=== PATIENT | male | born 1935 | race Caucasian/White ===

== ENCOUNTER 2019-07-05 14:46 | Inpatient (IN) ==
[2019-07-05] MEDS ORDERED: 0.9 % Sodium Chloride 500 ML IVC ONE ×3 (14:59→16:30)
[2019-07-05 15:59] LABS: Hematocrit 41.4 % (37.5-50.1); Hemoglobin 13.5 g/dL (12.9-16.9); Mean Corpuscular HGB Conc 32.6 g/dL (31.6-35.5); Mean Platelet Volume 10.2 fL (9.4-12.4); Platelet Count 247 K/mcL (140-400); Red Cell Distribution Width 15.6 % (11.5-14.5); White Blood Count 14.7 K/mcL (4.3-11.1)
[2019-07-05 16:20] LABS: Potassium 4.6 mEq/L (3.5-5.1)
[2019-07-05] MEDS ORDERED: 0.9 % Sodium Chloride 1,000 ML IVC ONE (17:07)
[2019-07-05] MEDS ORDERED: cefTRIAXone 2,000 MG in Water for inj. (sterile) 20 ML IVP ONE (17:37)
[2019-07-05 18:02] LABS: Bilirubin,Urine Negative (Negative); Blood,Urine Small (Negative); Clarity,Urine Cloudy (Clear); Color,Urine Yellow (Yellow); Glucose,Urine (UA) 100 mg/dL (Normal); Ketones,Urine Negative (Negative); Leukocyte Esterase,Urine Negative (Negative); Nitrite,Urine Negative (Negative); Protein,Urine >=300 mg/dL (Neg-Trace); Specific Gravity,Urine 1.026 (1.010-1.025); Urobilinogen,Urine Normal (Normal)
[2019-07-05 18:05] LABS: Bacteria,Urine None Seen per hpf (None-Few); RBC,Urine 0-3 per hpf (0-3); Squamous Epithelial Cell,Urine Many per lpf (None-Few); WBC,Urine 0-3 per hpf (0-3)
[2019-07-06] MEDS ORDERED: Naloxone 0.4 MG/ML INJ IVP PRN (02:08)
[2019-07-06] MEDS ORDERED: 0.9 % Sodium Chloride 1,000 ML IVC ONE (02:10)
[2019-07-06] MEDS ORDERED: Dextrose Gel 15 GM/37.5 ML TUBE PO PRN ×2 (02:10)
[2019-07-06] MEDS ORDERED: *HR* Dextrose 50 % in Water (Syg) 50 ML SYRINGE IVP PRN (02:10)
[2019-07-06] MEDS ORDERED: D5% in Water 1,000 ML IVC PRN (02:10)
[2019-07-06 04:17] LABS: Hematocrit 42.8 % (37.5-50.1); Hemoglobin 13.4 g/dL (12.9-16.9); Mean Corpuscular HGB Conc 31.3 g/dL (31.6-35.5); Mean Corpuscular Hemoglobin 29.8 pg (28.0-33.3); Mean Corpuscular Volume 95.3 fL (83.0-100.0); Mean Platelet Volume 10.1 fL (9.4-12.4); Platelet Count 197 K/mcL (140-400); Red Blood Count 4.49 M/mcL (4.19-5.50); Red Cell Distribution Width 15.5 % (11.5-14.5); White Blood Count 13.7 K/mcL (4.3-11.1)
[2019-07-06 04:39] LABS: BUN/Creatinine Ratio 28 (6-26); Blood Urea Nitrogen 25 mg/dL (8-23); Calcium 9.1 mg/dL (8.6-10.3); Carbon Dioxide 23 mEq/L (23-29); Chloride 111 mEq/L (98-107); Glucose 163 mg/dL (70-105); Osmolality,Calculated 308 (280-300); Potassium 4.1 mEq/L (3.5-5.1); Sodium 145 mEq/L (136-145); eGFR For African Americans > 60 (> 60); eGFR For Non-African Americans > 60 (> 60)
[2019-07-06] MEDS: Insulin LISPRO 300 UNITS/3 ML VIAL SQ SCH ×4 (08:33→20:13)
[2019-07-06 08:56] LABS: Creatine Kinase 682 Units/L (30-223)
[2019-07-06 09:45] LABS: Estimated Average Glucose 157 mg/dl
[2019-07-06] MEDS: cefTRIAXone 1,000 MG in Water for inj. (sterile) 10 ML IVP SCH (12:03)
[2019-07-06] MEDS: Aspirin 81 MG TAB.CHEW PO SCH (12:04)
[2019-07-06] MEDS: *HR* Heparin 5,000 UNIT/ML VIAL SQ SCH (17:11)
[2019-07-06] MEDS ORDERED: *HR* LORazepam 2 MG/ML VIAL IVP ONE (19:40)
[2019-07-07] MEDS: *HR* Heparin 5,000 UNIT/ML VIAL SQ SCH (05:08)
[2019-07-07] MEDS: Insulin LISPRO 300 UNITS/3 ML VIAL SQ SCH ×4 (08:18→22:53)
[2019-07-07] MEDS: Aspirin 81 MG TAB.CHEW PO SCH (08:18)
[2019-07-07] MEDS ORDERED: *HR* Labetalol 20 MG/4 ML SYRINGE IVP PRN (08:57)
[2019-07-07] MEDS: cefTRIAXone 1,000 MG in Water for inj. (sterile) 10 ML IVP SCH (11:55)
[2019-07-07] MEDS: Finasteride 5 MG TABLET PO SCH (12:10)
[2019-07-07] MEDS: Carbidopa/Levodopa 25/100 TABLET PO SCH ×3 (12:10→16:44)
[2019-07-07 14:23] LABS: Basophils # 0.1 K/mcL (0.0-0.2); Basophils % 0.7 %; Eosinophils # 0.4 K/mcL (0.0-0.6); Eosinophils % 4.4 %; Hematocrit 38.7 % (37.5-50.1); Hemoglobin 12.3 g/dL (12.9-16.9); Lymphocytes # 1.1 K/mcL (0.6-4.6); Lymphocytes % 11.8 %; Mean Corpuscular HGB Conc 31.8 g/dL (31.6-35.5); Mean Corpuscular Hemoglobin 29.9 pg (28.0-33.3); Mean Corpuscular Volume 94.2 fL (83.0-100.0); Mean Platelet Volume 10.1 fL (9.4-12.4); Monocytes # 1.1 K/mcL (0.0-1.3); Monocytes % 11.1 %; Neutrophils # 6.7 K/mcL (1.6-8.9); Platelet Count 197 K/mcL (140-400); Red Blood Count 4.11 M/mcL (4.19-5.50); Red Cell Distribution Width 15.5 % (11.5-14.5); White Blood Count 9.6 K/mcL (4.3-11.1)
[2019-07-07 14:36] LABS: BUN/Creatinine Ratio 21 (6-26); Blood Urea Nitrogen 22 mg/dL (8-23); Calcium 8.3 mg/dL (8.6-10.3); Carbon Dioxide 23 mEq/L (23-29); Chloride 107 mEq/L (98-107); Creatine Kinase 207 Units/L (30-223); Glucose 223 mg/dL (70-105); Osmolality,Calculated 294 (280-300); Sodium 137 mEq/L (136-145); eGFR For African Americans > 60 (> 60); eGFR For Non-African Americans > 60 (> 60)
[2019-07-07 14:37] LABS: Chol/HDL Ratio 5.1 (0-4.9)
[2019-07-07] MEDS: [UNRECOGNIZED DRUG - OTHER] PO SCH (16:44)
[2019-07-08] MEDS: Finasteride 5 MG TABLET PO SCH (08:26)
[2019-07-08] MEDS: Insulin LISPRO 300 UNITS/3 ML VIAL SQ SCH ×4 (08:26→20:35)
[2019-07-08] MEDS: Carbidopa/Levodopa 25/100 TABLET PO SCH ×3 (08:26→17:24)
[2019-07-08] MEDS: Aspirin 81 MG TAB.CHEW PO SCH (08:26)
[2019-07-08] MEDS: [UNRECOGNIZED DRUG - OTHER] PO SCH (08:27)
[2019-07-08 16:31] LABS: BUN/Creatinine Ratio 23 (6-26); Blood Urea Nitrogen 26 mg/dL (8-23); Calcium 8.5 mg/dL (8.6-10.3); Carbon Dioxide 22 mEq/L (23-29); Chloride 108 mEq/L (98-107); Glucose 237 mg/dL (70-105); Osmolality,Calculated 300 (280-300); Potassium 4.2 mEq/L (3.5-5.1); Sodium 139 mEq/L (136-145); eGFR For African Americans > 60 (> 60); eGFR For Non-African Americans > 60 (> 60)
[2019-07-08] MEDS: *HR* Metformin 500 MG TABLET PO SCH (17:24)
[2019-07-09] MEDS: Finasteride 5 MG TABLET PO SCH (07:44)
[2019-07-09] MEDS: Carbidopa/Levodopa 25/100 TABLET PO SCH ×3 (07:44→16:09)
[2019-07-09] MEDS: Aspirin 81 MG TAB.CHEW PO SCH (07:44)
[2019-07-09] MEDS: *HR* Metformin 500 MG TABLET PO SCH ×2 (07:44→16:09)
[2019-07-09] MEDS: [UNRECOGNIZED DRUG - OTHER] PO SCH (07:45)
[2019-07-09] MEDS: Insulin LISPRO 300 UNITS/3 ML VIAL SQ SCH ×4 (07:46→20:26)
[2019-07-09] MEDS: amLODIPine 5 MG TABLET PO SCH (11:53)
[2019-07-09] MEDS: Acetaminophen 325 MG TABLET PO PRN ×2 (16:09→20:23)
[2019-07-09] MEDS ORDERED: Ibuprofen 400 MG TABLET PO ONE (21:56)
[2019-07-10] MEDS: amLODIPine 5 MG TABLET PO SCH (07:59)
[2019-07-10] MEDS: Aspirin 81 MG TAB.CHEW PO SCH (07:59)
[2019-07-10] MEDS: Finasteride 5 MG TABLET PO SCH (07:59)
[2019-07-10] MEDS: Carbidopa/Levodopa 25/100 TABLET PO SCH ×3 (07:59→17:24)
[2019-07-10] MEDS: *HR* Metformin 500 MG TABLET PO SCH ×2 (07:59→17:24)
[2019-07-10] MEDS: Insulin LISPRO 300 UNITS/3 ML VIAL SQ SCH ×4 (08:00→20:56)
[2019-07-10] MEDS: [UNRECOGNIZED DRUG - OTHER] PO SCH (08:00)
[2019-07-10 14:19] LABS: VBG HCO3 21 mEq/L (21-27); VBG PCO2 39 mmHg (41-51); VBG PH 7.34 pH Units (7.32-7.42); VBG PO2 70 mmHg (25-50)
[2019-07-10 14:20] LABS: Basophils # 0.1 K/mcL (0.0-0.2); Basophils % 0.3 %; Eosinophils # 0.1 K/mcL (0.0-0.6); Eosinophils % 0.8 %; Hematocrit 34.7 % (37.5-50.1); Immature Granulocytes % 3.1 % (0-4); Lymphocytes # 1.1 K/mcL (0.6-4.6); Lymphocytes % 6.3 %; Mean Corpuscular HGB Conc 30.8 g/dL (31.6-35.5); Mean Corpuscular Hemoglobin 29.7 pg (28.0-33.3); Mean Corpuscular Volume 96.4 fL (83.0-100.0); Mean Platelet Volume 10.5 fL (9.4-12.4); Monocytes # 1.6 K/mcL (0.0-1.3); Monocytes % 9.3 %; Neutrophils # 13.7 K/mcL (1.6-8.9); Platelet Count 213 K/mcL (140-400); Red Cell Distribution Width 15.8 % (11.5-14.5); Segmented Neutrophils % 80.2 %
[2019-07-10 14:30] LABS: Hemoglobin 10.7 g/dL (12.9-16.9); White Blood Count 17.1 K/mcL (4.3-11.1)
[2019-07-10 14:51] LABS: Calcium 9.1 mg/dL (8.6-10.3); Potassium 4.3 mEq/L (3.5-5.1)
[2019-07-10] MEDS ORDERED: Bisacodyl 10 MG RECTAL SUPPOSITORY RC ONE (14:59)
[2019-07-10 16:18] LABS: Bilirubin,Urine Small (Negative); Blood,Urine Large (Negative); Clarity,Urine Cloudy (Clear); Color,Urine Dark Yellow (Yellow); Glucose,Urine (UA) 100 mg/dL (Normal); Ketones,Urine Negative (Negative); Leukocyte Esterase,Urine Negative (Negative); Nitrite,Urine Negative (Negative); Protein,Urine >=300 mg/dL (Neg-Trace); Specific Gravity,Urine 1.028 (1.010-1.025); Urobilinogen,Urine Normal (Normal)
[2019-07-10 16:20] LABS: Bacteria,Urine None Seen per hpf (None-Few); RBC,Urine TNTC per hpf (0-3); Squamous Epithelial Cell,Urine Many per lpf (None-Few)
[2019-07-10 16:37] LABS: Hyaline Casts,Urine None Seen per lpf (None-Few)
[2019-07-10 16:38] LABS: Sperm,Urine Present
[2019-07-10] MEDS: Piperacillin/Tazobactam 3.375 GM in 0.9 % Sodium Chloride Mini Bag 100 ML IVPB SCH ×2 (17:56→23:14)
[2019-07-10] MEDS: Ringers Solution, Lactated 1,000 ML IVC SCH (21:11)
[2019-07-11 07:00] LABS: Bilirubin,Urine Negative (Negative); Blood,Urine Large (Negative); Clarity,Urine Clear (Clear); Color,Urine Yellow (Yellow); Glucose,Urine (UA) Normal (Normal); Ketones,Urine Negative (Negative); Leukocyte Esterase,Urine Trace (Negative); Nitrite,Urine Negative (Negative); PH,Urine 5.5 pH Units (5.0-8.0); Protein,Urine 100 mg/dL (Neg-Trace); Specific Gravity,Urine 1.022 (1.010-1.025); Urobilinogen,Urine Normal (Normal)
[2019-07-11 07:01] LABS: Bacteria,Urine None Seen per hpf (None-Few); Hyaline Casts,Urine None Seen per lpf (None-Few); RBC,Urine 50-100 per hpf (0-3); Squamous Epithelial Cell,Urine Many per lpf (None-Few); WBC,Urine 15-30 per hpf (0-3)
[2019-07-11 09:11] LABS: Hematocrit 30.6 % (37.5-50.1); Hemoglobin 10.1 g/dL (12.9-16.9); Mean Corpuscular Hemoglobin 30.1 pg (28.0-33.3); Mean Corpuscular Volume 91.1 fL (83.0-100.0); Mean Platelet Volume 10.4 fL (9.4-12.4); Platelet Count 202 K/mcL (140-400); Red Blood Count 3.36 M/mcL (4.19-5.50); Red Cell Distribution Width 15.6 % (11.5-14.5); White Blood Count 12.2 K/mcL (4.3-11.1)
[2019-07-11 09:29] LABS: BUN/Creatinine Ratio 30 (6-26); Blood Urea Nitrogen 29 mg/dL (8-23); Calcium 8.3 mg/dL (8.6-10.3); Carbon Dioxide 24 mEq/L (23-29); Chloride 110 mEq/L (98-107); Glucose 175 mg/dL (70-105); Osmolality,Calculated 300 (280-300); Potassium 4.1 mEq/L (3.5-5.1); Sodium 140 mEq/L (136-145); eGFR For African Americans > 60 (> 60); eGFR For Non-African Americans > 60 (> 60)
[2019-07-11] MEDS: Insulin LISPRO 300 UNITS/3 ML VIAL SQ SCH ×4 (09:29→21:40)
[2019-07-11] MEDS: *HR* Metformin 500 MG TABLET PO SCH ×2 (09:49→17:50)
[2019-07-11] MEDS: Carbidopa/Levodopa 25/100 TABLET PO SCH ×3 (09:49→17:50)
[2019-07-11] MEDS: Finasteride 5 MG TABLET PO SCH (09:49)
[2019-07-11] MEDS: Aspirin 81 MG TAB.CHEW PO SCH (09:49)
[2019-07-11] MEDS: Piperacillin/Tazobactam 3.375 GM in 0.9 % Sodium Chloride Mini Bag 100 ML IVPB SCH (09:50)
[2019-07-11] MEDS: [UNRECOGNIZED DRUG - OTHER] PO SCH (09:50)
[2019-07-11] MEDS: Bisacodyl 10 MG RECTAL SUPPOSITORY RC SCH (09:50)
[2019-07-11] MEDS: Acetaminophen 325 MG TABLET PO PRN (12:40)
[2019-07-11] MEDS: Ringers Solution, Lactated 1,000 ML IVC SCH (15:27)
[2019-07-12 06:54] LABS: Hematocrit 30.6 % (37.5-50.1); Mean Corpuscular HGB Conc 32.7 g/dL (31.6-35.5); Mean Corpuscular Hemoglobin 30.1 pg (28.0-33.3); Mean Corpuscular Volume 92.2 fL (83.0-100.0); Mean Platelet Volume 10.3 fL (9.4-12.4); Platelet Count 224 K/mcL (140-400); Red Blood Count 3.32 M/mcL (4.19-5.50); Red Cell Distribution Width 15.6 % (11.5-14.5); White Blood Count 10.1 K/mcL (4.3-11.1)
[2019-07-12 07:20] LABS: BUN/Creatinine Ratio 30 (6-26); Blood Urea Nitrogen 27 mg/dL (8-23); Calcium 8.3 mg/dL (8.6-10.3); Carbon Dioxide 23 mEq/L (23-29); Chloride 108 mEq/L (98-107); Glucose 161 mg/dL (70-105); Osmolality,Calculated 301 (280-300); Potassium 4.2 mEq/L (3.5-5.1); Sodium 141 mEq/L (136-145); eGFR For African Americans > 60 (> 60); eGFR For Non-African Americans > 60 (> 60)
[2019-07-12] MEDS: Insulin LISPRO 300 UNITS/3 ML VIAL SQ SCH (08:05)
[2019-07-12] MEDS: Carbidopa/Levodopa 25/100 TABLET PO SCH (08:06)
[2019-07-12] MEDS: *HR* Metformin 500 MG TABLET PO SCH (08:06)
[2019-07-12] MEDS: Aspirin 81 MG TAB.CHEW PO SCH (08:06)
[2019-07-12] MEDS: Finasteride 5 MG TABLET PO SCH (08:06)
[2019-07-12] MEDS: Bisacodyl 10 MG RECTAL SUPPOSITORY RC SCH (08:06)
[2019-07-12] MEDS: [UNRECOGNIZED DRUG - OTHER] PO SCH (08:07)
[2019-07-12] MEDS ORDERED: levoFLOXacin 500 MG TABLET PO SCH (09:00)
[2019-07-12 12:24] VITALS: BP 150/76
== END 2019-07-12 15:16 | DRG 64 ==
LOC: EMEROOARM 14:46 → 3BNU 14:46 → SUATTDRO 07-06 11:52
PROVIDERS: ADMIT Internal Medicine; ATTEND Family Medicine

== ENCOUNTER 2019-09-11 12:12 | Inpatient (IN) ==
[2019-09-11] MEDS ORDERED: Isovue-370 500 ML BOTTLE IVP ONE (13:05)
[2019-09-11] MEDS ORDERED: Piperacillin/Tazobactam 3.375 GM in 0.9 % Sodium Chloride Mini Bag 100 ML IVPB ONE (13:06)
[2019-09-11] MEDS ORDERED: 0.9 % Sodium Chloride 1,000 ML IVC ONE (13:19)
[2019-09-11 14:01] LABS: INR 1.1; Prothrombin Time 12.8 Seconds (9.4-12.1)
[2019-09-11 14:02] LABS: Hematocrit 38.2 % (37.5-50.1); Hemoglobin 11.4 g/dL (12.9-16.9); Lymphocytes # 1.4 K/mcL (0.6-4.6); Mean Corpuscular HGB Conc 29.8 g/dL (31.6-35.5); Mean Corpuscular Hemoglobin 26.8 pg (28.0-33.3); Mean Corpuscular Volume 89.9 fL (83.0-100.0); Mean Platelet Volume 10.5 fL (9.4-12.4); Platelet Count 303 K/mcL (140-400); Red Blood Count 4.25 M/mcL (4.19-5.50); Red Cell Distribution Width 15.7 % (11.5-14.5); White Blood Count 13.7 K/mcL (4.3-11.1)
[2019-09-11 14:14] LABS: Albumin/Globulin Ratio 0.8 (1.1-2.2); Bilirubin,Total 0.9 mg/dL (0.3-1.0); Calcium 9.4 mg/dL (8.6-10.3); Potassium 3.8 mEq/L (3.5-5.1); Troponin I 0.03 ng/mL (< 0.04)
[2019-09-11 14:51] LABS: Monocytes # 0.8 K/mcL (0.0-1.3); Neutrophils # 11.5 K/mcL (1.6-8.9); Platelet Estimate Normal (Normal)
[2019-09-11] MEDS ORDERED: Morphine Sulfate 2 MG/ML SYRINGE IVP ONE (15:27)
[2019-09-11 15:34] LABS: Bilirubin,Urine Small (Negative); Blood,Urine Large (Negative); Clarity,Urine Turbid (Clear); Color,Urine Dark Yellow (Yellow); Glucose,Urine (UA) 100 mg/dL (Normal); Ketones,Urine Negative (Negative); Leukocyte Esterase,Urine Moderate (Negative); Nitrite,Urine Negative (Negative); Protein,Urine >=300 mg/dL (Neg-Trace); Specific Gravity,Urine > 1.030 (1.010-1.025); Squamous Epithelial Cell,Urine Moderate per lpf (None-Few); Urobilinogen,Urine Normal (Normal); WBC,Urine TNTC per hpf (0-3)
[2019-09-11 15:44] LABS: Amorphous Sediment,Urine Few per hpf (Few); Bacteria,Urine Moderate per hpf (None-Few); Hyaline Casts,Urine Few per lpf (None-Few)
[2019-09-11] MEDS ORDERED: Ondansetron 4 MG/2 ML VIAL IVP PRN (15:59)
[2019-09-11] MEDS ORDERED: Naloxone 0.4 MG/ML INJ IVP PRN (15:59)
[2019-09-11] MEDS ORDERED: Bisacodyl 10 MG RECTAL SUPPOSITORY RC PRN (16:16)
[2019-09-11] MEDS ORDERED: D5% in Water 1,000 ML IVC PRN (16:31)
[2019-09-11] MEDS ORDERED: Dextrose Gel 15 GM/37.5 ML TUBE PO PRN ×2 (16:31)
[2019-09-11] MEDS ORDERED: *HR* Dextrose 50 % in Water (Syg) 50 ML SYRINGE IVP PRN (16:31)
[2019-09-11] MEDS: Insulin LISPRO 300 UNITS/3 ML VIAL SQ SCH (20:45)
[2019-09-11] MEDS: 0.9 % Sodium Chloride 1,000 ML IVC SCH (20:45)
[2019-09-11] MEDS: *HR* Heparin 5,000 UNIT/ML VIAL SQ SCH (20:46)
[2019-09-11] MEDS: Sennosides/Docusate Sodium TABLET PO SCH (20:48)
[2019-09-12] MEDS: *HR* Heparin 5,000 UNIT/ML VIAL SQ SCH ×2 (05:28→16:00)
[2019-09-12 07:11] LABS: Basophils # 0.1 K/mcL (0.0-0.2); Basophils % 0.6 %; Eosinophils # 0.1 K/mcL (0.0-0.6); Eosinophils % 0.7 %; Hematocrit 31.4 % (37.5-50.1); Hemoglobin 9.7 g/dL (12.9-16.9); Immature Granulocytes % 2.6 % (0-4); Lymphocytes # 0.7 K/mcL (0.6-4.6); Lymphocytes % 5.8 %; Mean Corpuscular HGB Conc 30.9 g/dL (31.6-35.5); Mean Corpuscular Volume 87.5 fL (83.0-100.0); Mean Platelet Volume 10.4 fL (9.4-12.4); Monocytes # 0.9 K/mcL (0.0-1.3); Monocytes % 7.9 %; Neutrophils # 9.9 K/mcL (1.6-8.9); Platelet Count 251 K/mcL (140-400); Red Blood Count 3.59 M/mcL (4.19-5.50); Red Cell Distribution Width 15.8 % (11.5-14.5); Segmented Neutrophils % 82.4 %; White Blood Count 11.9 K/mcL (4.3-11.1)
[2019-09-12 07:24] LABS: BUN/Creatinine Ratio 25 (6-26); Blood Urea Nitrogen 29 mg/dL (8-23); Calcium 8.3 mg/dL (8.6-10.3); Carbon Dioxide 22 mEq/L (23-29); Chloride 113 mEq/L (98-107); Glucose 228 mg/dL (70-105); Magnesium 1.9 mg/dL (1.6-2.6); Osmolality,Calculated 317 (280-300); Potassium 3.5 mEq/L (3.5-5.1); Sodium 147 mEq/L (136-145); eGFR For African Americans > 60 (> 60); eGFR For Non-African Americans 60 (> 60)
[2019-09-12] MEDS: Insulin LISPRO 300 UNITS/3 ML VIAL SQ SCH ×4 (09:32→21:20)
[2019-09-12] MEDS: Sennosides/Docusate Sodium TABLET PO SCH ×2 (09:32→21:20)
[2019-09-12] MEDS ORDERED: E-Z-PAQUE (BARIUM SULF) SUSP 1 BOTTLE PO ONE (15:36)
[2019-09-12] MEDS ORDERED: E-Z-HD (BARIUM SULF) SUSPENSION PO ONE (15:36)
[2019-09-12] MEDS: Acetaminophen 325 MG TABLET PO PRN (15:57)
[2019-09-12] MEDS ORDERED: 0.9 % Sodium Chloride 1,000 ML ONE (17:50)
[2019-09-12] MEDS: 0.9 % Sodium Chloride 1,000 ML IVC SCH (17:53)
[2019-09-12 18:18] LABS: Acinetobacter baumannii by PCR Not Detected (Not Detect); Enterobacter cloacae Cmplx PCR Not Detected (Not Detect); Enterococcus by PCR Not Detected (Not Detect); Escherichia coli by PCR Not Detected (Not Detect); Klebsiella oxytoca by PCR Not Detected (Not Detect); Klebsiella pneumoniae by PCR Not Detected (Not Detect); Staphylococcus aureus by PCR Not Detected (Not Detect); Staphylococcus by PCR Not Detected (Not Detect); Streptococcus agalactiae(B)PCR Not Detected (Not Detect); Streptococcus by PCR Not Detected (Not Detect); Streptococcus pneumoniae PCR Not Detected (Not Detect); Streptococcus pyogenes (A) PCR Not Detected (Not Detect); blaKPC Carbapenem-Resist Gene Not Detected (Not Detect); mecA Methicillin-Resist Gene Not Detected (Not Detect); vanA/B Vancomycin-Resist Genes Not Detected (Not Detect)
[2019-09-12 18:19] LABS: Candida albicans by PCR Not Detected (Not Detect); Candida glabrata by PCR Not Detected (Not Detect); Candida krusei by PCR Not Detected (Not Detect); Candida parapsilosis by PCR Not Detected (Not Detect); Candida tropicalis by PCR Not Detected (Not Detect); Proteus by PCR DETECTED (Not Detect); Pseudomonas aeruginosa by PCR Not Detected (Not Detect); Serratia marcescens by PCR Not Detected (Not Detect)
[2019-09-12] MEDS: Piperacillin/Tazobactam 3.375 GM in 0.9 % Sodium Chloride Mini Bag 100 ML IVPB SCH (23:12)
[2019-09-13 02:42] LABS: Basophils # 0.1 K/mcL (0.0-0.2); Basophils % 0.5 %; Eosinophils # 0.1 K/mcL (0.0-0.6); Eosinophils % 0.8 %; Hematocrit 33.7 % (37.5-50.1); Hemoglobin 10.1 g/dL (12.9-16.9); Immature Granulocytes % 3.4 % (0-4); Lymphocytes # 1.1 K/mcL (0.6-4.6); Lymphocytes % 7.9 %; Mean Corpuscular Hemoglobin 26.9 pg (28.0-33.3); Mean Corpuscular Volume 89.6 fL (83.0-100.0); Mean Platelet Volume 9.8 fL (9.4-12.4); Monocytes # 1.1 K/mcL (0.0-1.3); Monocytes % 8.1 %; Platelet Count 269 K/mcL (140-400); Red Blood Count 3.76 M/mcL (4.19-5.50); Red Cell Distribution Width 15.9 % (11.5-14.5); Segmented Neutrophils % 79.3 %; White Blood Count 13.9 K/mcL (4.3-11.1)
[2019-09-13 03:01] LABS: BUN/Creatinine Ratio 17 (6-26); Blood Urea Nitrogen 19 mg/dL (8-23); Calcium 8.5 mg/dL (8.6-10.3); Carbon Dioxide 22 mEq/L (23-29); Chloride 114 mEq/L (98-107); Glucose 199 mg/dL (70-105); Osmolality,Calculated 318 (280-300); Potassium 3.3 mEq/L (3.5-5.1); Sodium 150 mEq/L (136-145); eGFR For African Americans > 60 (> 60); eGFR For Non-African Americans > 60 (> 60)
[2019-09-13] MEDS: *HR* Heparin 5,000 UNIT/ML VIAL SQ SCH ×2 (05:31→23:22)
[2019-09-13] MEDS: Piperacillin/Tazobactam 3.375 GM in 0.9 % Sodium Chloride Mini Bag 100 ML IVPB SCH ×3 (09:52→23:25)
[2019-09-13] MEDS: Insulin LISPRO 300 UNITS/3 ML VIAL SQ SCH ×5 (09:52→20:52)
[2019-09-13] MEDS: Sennosides/Docusate Sodium TABLET PO SCH ×2 (09:53→20:51)
[2019-09-13] MEDS: Mirtazapine 15 MG TABLET PO SCH (20:51)
[2019-09-13] MEDS: Carbidopa/Levodopa 25/100 TABLET PO SCH (20:52)
[2019-09-13] MEDS: Insulin DETEMIR 100 UNIT/ML X5UNITS SQ SCH (20:53)
[2019-09-14] MEDS: *HR* Heparin 5,000 UNIT/ML VIAL SQ SCH ×2 (05:23→18:11)
[2019-09-14 06:06] LABS: Basophils # 0.1 K/mcL (0.0-0.2); Basophils % 0.4 %; Eosinophils # 0.2 K/mcL (0.0-0.6); Eosinophils % 1.4 %; Hematocrit 29.5 % (37.5-50.1); Hemoglobin 9.3 g/dL (12.9-16.9); Immature Granulocytes % 2.8 % (0-4); Lymphocytes # 1.2 K/mcL (0.6-4.6); Lymphocytes % 7.2 %; Mean Corpuscular HGB Conc 31.5 g/dL (31.6-35.5); Mean Corpuscular Hemoglobin 27.1 pg (28.0-33.3); Mean Platelet Volume 10.1 fL (9.4-12.4); Monocytes # 1.1 K/mcL (0.0-1.3); Monocytes % 6.9 %; Neutrophils # 13.1 K/mcL (1.6-8.9); Nucleated Red Blood Cells 0.1 /100 WBC (0); Platelet Count 245 K/mcL (140-400); Red Blood Count 3.43 M/mcL (4.19-5.50); Red Cell Distribution Width 15.8 % (11.5-14.5); Segmented Neutrophils % 81.3 %; White Blood Count 16.2 K/mcL (4.3-11.1)
[2019-09-14 06:32] LABS: BUN/Creatinine Ratio 17 (6-26); Blood Urea Nitrogen 18 mg/dL (8-23); Calcium 8.2 mg/dL (8.6-10.3); Carbon Dioxide 23 mEq/L (23-29); Chloride 115 mEq/L (98-107); Glucose 154 mg/dL (70-105); Osmolality,Calculated 315 (280-300); Sodium 150 mEq/L (136-145); eGFR For African Americans > 60 (> 60); eGFR For Non-African Americans > 60 (> 60)
[2019-09-14] MEDS: Insulin LISPRO 300 UNITS/3 ML VIAL SQ SCH ×7 (09:15→22:11)
[2019-09-14] MEDS: Piperacillin/Tazobactam 3.375 GM in 0.9 % Sodium Chloride Mini Bag 100 ML IVPB SCH ×3 (10:27→23:58)
[2019-09-14] MEDS: Acetaminophen 325 MG TABLET PO PRN (10:27)
[2019-09-14] MEDS: Carbidopa/Levodopa 25/100 TABLET PO SCH ×3 (10:29→20:17)
[2019-09-14] MEDS: amLODIPine 5 MG TABLET PO SCH (10:29)
[2019-09-14] MEDS: Aspirin Enteric Coated 81 MG Tablet PO SCH (10:29)
[2019-09-14] MEDS: Sennosides/Docusate Sodium TABLET PO SCH ×2 (10:29→20:13)
[2019-09-14] MEDS: Mirtazapine 15 MG TABLET PO SCH (20:13)
[2019-09-14] MEDS: Insulin DETEMIR 100 UNIT/ML X5UNITS SQ SCH (22:11)
[2019-09-15 02:03] LABS: Basophils # 0.1 K/mcL (0.0-0.2); Basophils % 0.5 %; Eosinophils # 0.3 K/mcL (0.0-0.6); Eosinophils % 2.1 %; Hematocrit 29.6 % (37.5-50.1); Immature Granulocytes % 2.7 % (0-4); Lymphocytes # 1.2 K/mcL (0.6-4.6); Lymphocytes % 7.3 %; Mean Corpuscular HGB Conc 30.4 g/dL (31.6-35.5); Mean Corpuscular Hemoglobin 27.4 pg (28.0-33.3); Mean Corpuscular Volume 90.2 fL (83.0-100.0); Mean Platelet Volume 10.1 fL (9.4-12.4); Monocytes % 6.1 %; Neutrophils # 13.2 K/mcL (1.6-8.9); Platelet Count 237 K/mcL (140-400); Red Blood Count 3.28 M/mcL (4.19-5.50); Red Cell Distribution Width 15.7 % (11.5-14.5); Segmented Neutrophils % 81.3 %; White Blood Count 16.2 K/mcL (4.3-11.1)
[2019-09-15 02:26] LABS: BUN/Creatinine Ratio 18 (6-26); Blood Urea Nitrogen 18 mg/dL (8-23); Calcium 8.1 mg/dL (8.6-10.3); Carbon Dioxide 23 mEq/L (23-29); Chloride 116 mEq/L (98-107); Glucose 122 mg/dL (70-105); Osmolality,Calculated 307 (280-300); Potassium 3.2 mEq/L (3.5-5.1); Sodium 147 mEq/L (136-145); eGFR For African Americans > 60 (> 60); eGFR For Non-African Americans > 60 (> 60)
[2019-09-15] MEDS: *HR* Heparin 5,000 UNIT/ML VIAL SQ SCH ×2 (06:43→18:03)
[2019-09-15] MEDS: amLODIPine 5 MG TABLET PO SCH (08:59)
[2019-09-15] MEDS: Sennosides/Docusate Sodium TABLET PO SCH ×2 (08:59→23:23)
[2019-09-15] MEDS: Aspirin Enteric Coated 81 MG Tablet PO SCH (08:59)
[2019-09-15] MEDS: Piperacillin/Tazobactam 3.375 GM in 0.9 % Sodium Chloride Mini Bag 100 ML IVPB SCH ×2 (09:01→16:26)
[2019-09-15] MEDS: Insulin LISPRO 300 UNITS/3 ML VIAL SQ SCH ×7 (09:02→23:38)
[2019-09-15] MEDS: Carbidopa/Levodopa 25/100 TABLET PO SCH ×3 (09:29→23:37)
[2019-09-15] MEDS: Acetaminophen 325 MG TABLET PO PRN ×2 (15:09→23:23)
[2019-09-15] MEDS: Insulin DETEMIR 100 UNIT/ML X5UNITS SQ SCH (23:24)
[2019-09-15] MEDS: Mirtazapine 15 MG TABLET PO SCH (23:37)
[2019-09-16] MEDS: Piperacillin/Tazobactam 3.375 GM in 0.9 % Sodium Chloride Mini Bag 100 ML IVPB SCH ×3 (00:43→17:24)
[2019-09-16] MEDS: *HR* Heparin 5,000 UNIT/ML VIAL SQ SCH ×2 (06:29→17:24)
[2019-09-16] MEDS: Aspirin Enteric Coated 81 MG Tablet PO SCH (08:13)
[2019-09-16] MEDS: amLODIPine 5 MG TABLET PO SCH (08:13)
[2019-09-16] MEDS: Carbidopa/Levodopa 25/100 TABLET PO SCH ×3 (08:14→19:44)
[2019-09-16] MEDS: Insulin LISPRO 300 UNITS/3 ML VIAL SQ SCH ×6 (08:15→17:23)
[2019-09-16] MEDS: Sennosides/Docusate Sodium TABLET PO SCH (08:16)
[2019-09-16 08:31] LABS: BUN/Creatinine Ratio 17 (6-26); Blood Urea Nitrogen 18 mg/dL (8-23); Calcium 8.1 mg/dL (8.6-10.3); Carbon Dioxide 27 mEq/L (23-29); Chloride 113 mEq/L (98-107); Glucose 80 mg/dL (70-105); Osmolality,Calculated 307 (280-300); Sodium 148 mEq/L (136-145); eGFR For African Americans > 60 (> 60); eGFR For Non-African Americans > 60 (> 60)
[2019-09-16 08:51] LABS: Basophils # 0.1 K/mcL (0.0-0.2); Basophils % 0.6 %; Eosinophils # 0.5 K/mcL (0.0-0.6); Eosinophils % 3.1 %; Hematocrit 28.7 % (37.5-50.1); Immature Granulocytes % 2.6 % (0-4); Lymphocytes # 1.4 K/mcL (0.6-4.6); Lymphocytes % 9.5 %; Mean Corpuscular HGB Conc 31.4 g/dL (31.6-35.5); Mean Corpuscular Hemoglobin 27.2 pg (28.0-33.3); Mean Corpuscular Volume 86.7 fL (83.0-100.0); Mean Platelet Volume 10.2 fL (9.4-12.4); Monocytes # 0.9 K/mcL (0.0-1.3); Monocytes % 5.9 %; Neutrophils # 11.6 K/mcL (1.6-8.9); Platelet Count 264 K/mcL (140-400); Red Blood Count 3.31 M/mcL (4.19-5.50); Red Cell Distribution Width 15.9 % (11.5-14.5); Segmented Neutrophils % 78.3 %; White Blood Count 14.8 K/mcL (4.3-11.1)
[2019-09-17] MEDS: Insulin LISPRO 300 UNITS/3 ML VIAL SQ SCH ×7 (00:44→20:55)
[2019-09-17] MEDS: Piperacillin/Tazobactam 3.375 GM in 0.9 % Sodium Chloride Mini Bag 100 ML IVPB SCH ×3 (01:50→18:09)
[2019-09-17] MEDS: Sennosides/Docusate Sodium TABLET PO SCH ×3 (01:50→19:46)
[2019-09-17] MEDS: Insulin DETEMIR 100 UNIT/ML X5UNITS SQ SCH ×2 (01:50→19:47)
[2019-09-17] MEDS: Mirtazapine 15 MG TABLET PO SCH ×2 (01:51→19:46)
[2019-09-17] MEDS: *HR* Heparin 5,000 UNIT/ML VIAL SQ SCH ×2 (05:21→18:10)
[2019-09-17] MEDS: Carbidopa/Levodopa 25/100 TABLET PO SCH ×3 (09:14→19:46)
[2019-09-17] MEDS: amLODIPine 5 MG TABLET PO SCH (09:14)
[2019-09-17] MEDS: Aspirin Enteric Coated 81 MG Tablet PO SCH (09:15)
[2019-09-17 12:43] LABS: Basophils # 0.1 K/mcL (0.0-0.2); Basophils % 0.7 %; Eosinophils # 0.5 K/mcL (0.0-0.6); Eosinophils % 3.4 %; Immature Granulocytes % 2.6 % (0-4); Lymphocytes # 1.5 K/mcL (0.6-4.6); Lymphocytes % 10.4 %; Mean Corpuscular Hemoglobin 27.4 pg (28.0-33.3); Mean Corpuscular Volume 91.2 fL (83.0-100.0); Mean Platelet Volume 10.3 fL (9.4-12.4); Monocytes # 0.9 K/mcL (0.0-1.3); Monocytes % 6.6 %; Neutrophils # 10.7 K/mcL (1.6-8.9); Platelet Count 261 K/mcL (140-400); Red Blood Count 3.29 M/mcL (4.19-5.50); Red Cell Distribution Width 15.9 % (11.5-14.5); Segmented Neutrophils % 76.3 %; White Blood Count 14.1 K/mcL (4.3-11.1)
[2019-09-17 13:02] LABS: BUN/Creatinine Ratio 15 (6-26); Blood Urea Nitrogen 16 mg/dL (8-23); Calcium 8.1 mg/dL (8.6-10.3); Carbon Dioxide 25 mEq/L (23-29); Chloride 112 mEq/L (98-107); Glucose 74 mg/dL (70-105); Osmolality,Calculated 304 (280-300); Sodium 147 mEq/L (136-145); eGFR For African Americans > 60 (> 60); eGFR For Non-African Americans > 60 (> 60)
[2019-09-17] MEDS: Acetaminophen 325 MG TABLET PO PRN ×2 (13:58→18:34)
[2019-09-17] MEDS ORDERED: Gadolinium Contrast Agent (WT Based) IV PRN (17:12)
[2019-09-17] MEDS ORDERED: 0.9 % Sodium Chloride 1,000 ML IVC SCH (17:15)
[2019-09-18] MEDS: Piperacillin/Tazobactam 3.375 GM in 0.9 % Sodium Chloride Mini Bag 100 ML IVPB SCH ×3 (02:18→16:04)
[2019-09-18] MEDS: *HR* Heparin 5,000 UNIT/ML VIAL SQ SCH ×2 (06:34→18:22)
[2019-09-18 06:39] LABS: Basophils # 0.1 K/mcL (0.0-0.2); Basophils % 0.4 %; Eosinophils # 0.3 K/mcL (0.0-0.6); Hematocrit 32.4 % (37.5-50.1); Hemoglobin 9.6 g/dL (12.9-16.9); Immature Granulocytes % 2.9 % (0-4); Lymphocytes # 1.6 K/mcL (0.6-4.6); Lymphocytes % 9.4 %; Mean Corpuscular HGB Conc 29.6 g/dL (31.6-35.5); Mean Corpuscular Volume 91.3 fL (83.0-100.0); Mean Platelet Volume 10.3 fL (9.4-12.4); Monocytes % 5.7 %; Neutrophils # 13.2 K/mcL (1.6-8.9); Platelet Count 306 K/mcL (140-400); Red Blood Count 3.55 M/mcL (4.19-5.50); Red Cell Distribution Width 15.9 % (11.5-14.5); Segmented Neutrophils % 79.6 %; White Blood Count 16.6 K/mcL (4.3-11.1)
[2019-09-18 06:57] LABS: BUN/Creatinine Ratio 13 (6-26); Blood Urea Nitrogen 15 mg/dL (8-23); Calcium 8.2 mg/dL (8.6-10.3); Carbon Dioxide 27 mEq/L (23-29); Chloride 110 mEq/L (98-107); Glucose 57 mg/dL (70-105); Osmolality,Calculated 305 (280-300); Sodium 148 mEq/L (136-145); eGFR For African Americans > 60 (> 60); eGFR For Non-African Americans > 60 (> 60)
[2019-09-18] MEDS: Insulin LISPRO 300 UNITS/3 ML VIAL SQ SCH ×4 (09:03→21:08)
[2019-09-18] MEDS: Carbidopa/Levodopa 25/100 TABLET PO SCH ×3 (10:41→21:02)
[2019-09-18] MEDS: Aspirin Enteric Coated 81 MG Tablet PO SCH (10:41)
[2019-09-18] MEDS: amLODIPine 5 MG TABLET PO SCH (10:43)
[2019-09-18] MEDS: Sennosides/Docusate Sodium TABLET PO SCH ×2 (10:44→21:02)
[2019-09-18] MEDS ORDERED: D5% in Water 1,000 ML IVC SCH (16:00)
[2019-09-18] MEDS: Mirtazapine 15 MG TABLET PO SCH (21:02)
[2019-09-19] MEDS: Piperacillin/Tazobactam 3.375 GM in 0.9 % Sodium Chloride Mini Bag 100 ML IVPB SCH ×4 (00:43→23:33)
[2019-09-19] MEDS: *HR* Heparin 5,000 UNIT/ML VIAL SQ SCH ×2 (05:24→18:33)
[2019-09-19] MEDS: Insulin LISPRO 300 UNITS/3 ML VIAL SQ SCH ×4 (08:15→22:00)
[2019-09-19] MEDS: amLODIPine 5 MG TABLET PO SCH (11:47)
[2019-09-19] MEDS: Aspirin Enteric Coated 81 MG Tablet PO SCH (11:48)
[2019-09-19] MEDS: Sennosides/Docusate Sodium TABLET PO SCH ×2 (11:48→23:33)
[2019-09-19] MEDS: Carbidopa/Levodopa 25/100 TABLET PO SCH ×3 (11:49→23:33)
[2019-09-19 16:31] LABS: Basophils # 0.1 K/mcL (0.0-0.2); Basophils % 0.7 %; Eosinophils # 0.3 K/mcL (0.0-0.6); Eosinophils % 2.4 %; Hematocrit 30.6 % (37.5-50.1); Hemoglobin 9.4 g/dL (12.9-16.9); Lymphocytes # 1.5 K/mcL (0.6-4.6); Lymphocytes % 11.7 %; Mean Corpuscular HGB Conc 30.7 g/dL (31.6-35.5); Mean Corpuscular Hemoglobin 27.3 pg (28.0-33.3); Mean Platelet Volume 10.2 fL (9.4-12.4); Monocytes # 0.9 K/mcL (0.0-1.3); Monocytes % 7.2 %; Neutrophils # 9.6 K/mcL (1.6-8.9); Platelet Count 310 K/mcL (140-400); Red Blood Count 3.44 M/mcL (4.19-5.50)
[2019-09-19 16:37] LABS: BUN/Creatinine Ratio 10 (6-26); Blood Urea Nitrogen 11 mg/dL (8-23); Calcium 7.7 mg/dL (8.6-10.3); Carbon Dioxide 24 mEq/L (23-29); Chloride 105 mEq/L (98-107); Glucose 218 mg/dL (70-105); Osmolality,Calculated 296 (280-300); Potassium 3.3 mEq/L (3.5-5.1); Sodium 140 mEq/L (136-145); eGFR For African Americans > 60 (> 60); eGFR For Non-African Americans > 60 (> 60)
[2019-09-19] MEDS: Mirtazapine 15 MG TABLET PO SCH (23:33)
[2019-09-20] MEDS: *HR* Heparin 5,000 UNIT/ML VIAL SQ SCH ×2 (06:17→18:44)
[2019-09-20] MEDS: Insulin LISPRO 300 UNITS/3 ML VIAL SQ SCH ×4 (07:30→21:32)
[2019-09-20] MEDS: Carbidopa/Levodopa 25/100 TABLET PO SCH ×3 (08:00→21:35)
[2019-09-20 10:27] LABS: Hematocrit 30.5 % (37.5-50.1); Hemoglobin 9.4 g/dL (12.9-16.9); Mean Corpuscular HGB Conc 30.8 g/dL (31.6-35.5); Mean Corpuscular Hemoglobin 27.1 pg (28.0-33.3); Mean Corpuscular Volume 87.9 fL (83.0-100.0); Mean Platelet Volume 10.1 fL (9.4-12.4); Platelet Count 322 K/mcL (140-400); Red Blood Count 3.47 M/mcL (4.19-5.50); Red Cell Distribution Width 15.9 % (11.5-14.5); White Blood Count 11.4 K/mcL (4.3-11.1)
[2019-09-20 11:09] LABS: BUN/Creatinine Ratio 11 (6-26); Blood Urea Nitrogen 11 mg/dL (8-23); Calcium 7.9 mg/dL (8.6-10.3); Carbon Dioxide 24 mEq/L (23-29); Chloride 110 mEq/L (98-107); Glucose 174 mg/dL (70-105); Osmolality,Calculated 296 (280-300); Potassium 3.2 mEq/L (3.5-5.1); Sodium 141 mEq/L (136-145); eGFR For African Americans > 60 (> 60); eGFR For Non-African Americans > 60 (> 60)
[2019-09-20] MEDS: Sennosides/Docusate Sodium TABLET PO SCH ×2 (12:31→21:35)
[2019-09-20] MEDS: Aspirin Enteric Coated 81 MG Tablet PO SCH (12:32)
[2019-09-20] MEDS: amLODIPine 5 MG TABLET PO SCH (12:32)
[2019-09-20] MEDS: Piperacillin/Tazobactam 3.375 GM in 0.9 % Sodium Chloride Mini Bag 100 ML IVPB SCH ×2 (12:32→18:33)
[2019-09-20] MEDS: Mirtazapine 15 MG TABLET PO SCH (21:35)
[2019-09-21 05:14] LABS: Hematocrit 31.2 % (37.5-50.1); Hemoglobin 9.2 g/dL (12.9-16.9); Mean Corpuscular HGB Conc 29.5 g/dL (31.6-35.5); Mean Corpuscular Hemoglobin 26.4 pg (28.0-33.3); Mean Corpuscular Volume 89.4 fL (83.0-100.0); Mean Platelet Volume 9.9 fL (9.4-12.4); Platelet Count 352 K/mcL (140-400); Red Blood Count 3.49 M/mcL (4.19-5.50); Red Cell Distribution Width 15.7 % (11.5-14.5); White Blood Count 10.7 K/mcL (4.3-11.1)
[2019-09-21 05:41] LABS: BUN/Creatinine Ratio 10 (6-26); Blood Urea Nitrogen 9 mg/dL (8-23); Carbon Dioxide 27 mEq/L (23-29); Chloride 109 mEq/L (98-107); Glucose 159 mg/dL (70-105); Osmolality,Calculated 296 (280-300); Potassium 3.1 mEq/L (3.5-5.1); Sodium 142 mEq/L (136-145); eGFR For African Americans > 60 (> 60); eGFR For Non-African Americans > 60 (> 60)
[2019-09-21] MEDS: *HR* Heparin 5,000 UNIT/ML VIAL SQ SCH ×2 (06:10→17:34)
[2019-09-21] MEDS ORDERED: Potassium Chloride 40 MEQ, Lidocaine 1% 2 ML in 0.9 % Sodium Chloride 500 ML IVPB ONE (07:21)
[2019-09-21] MEDS: Sennosides/Docusate Sodium TABLET PO SCH ×2 (08:53→22:07)
[2019-09-21] MEDS: Aspirin Enteric Coated 81 MG Tablet PO SCH (08:53)
[2019-09-21] MEDS: amLODIPine 5 MG TABLET PO SCH (08:54)
[2019-09-21] MEDS: Carbidopa/Levodopa 25/100 TABLET PO SCH ×3 (09:10→22:07)
[2019-09-21] MEDS: Insulin LISPRO 300 UNITS/3 ML VIAL SQ SCH ×4 (09:11→22:07)
[2019-09-21] MEDS: Piperacillin/Tazobactam 3.375 GM in 0.9 % Sodium Chloride Mini Bag 100 ML IVPB SCH ×3 (10:19→17:33)
[2019-09-21] MEDS ORDERED: Lidocaine -MPF 1% 5 ML AMPUL INFILT ONE (13:44)
[2019-09-21] MEDS ORDERED: *HR* LORazepam 2 MG/ML VIAL IVP ONE (13:47)
[2019-09-21] MEDS: Mirtazapine 15 MG TABLET PO SCH (22:07)
[2019-09-22] MEDS: Piperacillin/Tazobactam 3.375 GM in 0.9 % Sodium Chloride Mini Bag 100 ML IVPB SCH ×2 (02:00→08:07)
[2019-09-22 02:26] LABS: Hematocrit 27.2 % (37.5-50.1); Hemoglobin 8.4 g/dL (12.9-16.9); Mean Corpuscular HGB Conc 30.9 g/dL (31.6-35.5); Mean Corpuscular Hemoglobin 26.9 pg (28.0-33.3); Mean Corpuscular Volume 87.2 fL (83.0-100.0); Mean Platelet Volume 9.9 fL (9.4-12.4); Platelet Count 349 K/mcL (140-400); Red Blood Count 3.12 M/mcL (4.19-5.50); Red Cell Distribution Width 15.9 % (11.5-14.5); White Blood Count 9.6 K/mcL (4.3-11.1)
[2019-09-22 02:41] LABS: BUN/Creatinine Ratio 12 (6-26); Blood Urea Nitrogen 11 mg/dL (8-23); Carbon Dioxide 26 mEq/L (23-29); Chloride 110 mEq/L (98-107); Glucose 167 mg/dL (70-105); Osmolality,Calculated 297 (280-300); Potassium 3.5 mEq/L (3.5-5.1); Sodium 142 mEq/L (136-145); eGFR For African Americans > 60 (> 60); eGFR For Non-African Americans > 60 (> 60)
[2019-09-22] MEDS: *HR* Heparin 5,000 UNIT/ML VIAL SQ SCH (05:57)
[2019-09-22] MEDS: Aspirin Enteric Coated 81 MG Tablet PO SCH (08:11)
[2019-09-22] MEDS: Carbidopa/Levodopa 25/100 TABLET PO SCH ×2 (08:12→11:45)
[2019-09-22] MEDS: Sennosides/Docusate Sodium TABLET PO SCH (08:12)
[2019-09-22] MEDS: amLODIPine 5 MG TABLET PO SCH (08:13)
[2019-09-22] MEDS: Insulin LISPRO 300 UNITS/3 ML VIAL SQ SCH ×2 (08:15→11:44)
[2019-09-22 11:39] VITALS: BP 167/80
[2019-09-22] MEDS ORDERED: Aminoglycoside Consult 1 EACH MC ONE (14:37)
== END 2019-09-22 14:38 | DRG 698 ==
LOC: EMEROOARM 12:12 → 3ANU 12:12 → SUATTDRO 09-12 14:51
PROVIDERS: ADMIT Student in an Organized Health Care Education/Training Program; ATTEND Family Medicine